=== PATIENT | male | born 1985 | race American Indian/Alaskan Native ===

== ENCOUNTER 2017-09-18 08:24 | Outpatient (CLI) | payer BC ==
--- NOTE | 2017-09-18 09:43 | Ultrasound Report ---
ULTRASOUND TESTICULAR DOPPLER COMPLETE INDICATION: Testicular pain. COMPARISON: None similar at this institution. FINDINGS: Longitudinal and transverse grayscale and color flow sonographic evaluation of the scrotum and its contents performed. RIGHT TESTICLE is 4.5 x 2.2 X 2.3 cm and demonstrates normal contours and echotexture. No suspicious intrinsic lesions. Approximately 1.1 x 0.7 cm right epididymal head. Minimal right peritesticular fluid. LEFT TESTICLE diffusely heterogeneous with absent blood flow. It measures 4.7 x 3 x 2.9 cm. Heterogeneous left epididymal head also enlarged to approximately 3 x 2.5 cm, image 34 without demonstratable blood flow. No significant hydrocele, though diffuse left scrotal edema suspected. CONCLUSION: 1. Heterogeneous left testicle with absent blood flow, highly worrisome sonographically for testicular torsion, as described. Enlarged left epididymis as well. Please correlate. 2. Left scrotal edema also suspected. 3. Normal right testicle. I phoned the above results to Denise Milligan NP with Dr. Lawrence Moreno, 9:20 AM, 09/18/2017 who advised the patient be sent to their office for further management. Thank you for the opportunity to participate in this patient's care.
== END 2017-09-18 08:25 | disposition home or self-care (01) ==
LOC: US 08:24
PROVIDERS: ATTEND Family Medicine Adult Medicine
DX: N50.89 Other specified disorders of the male genital organs (principal); N50.819 Testicular pain, unspecified
CPT/HCPCS: 93975